=== PATIENT | female | born 1935 | race Caucasian/White ===

== ENCOUNTER 2024-12-08 20:12 | Inpatient (IN) | payer MEDICARE ==
[~2024-12-08] VITALS: Ht 170.2 cm; Wt 83.3 kg
--- NOTE | 2024-12-08 20:23 | NUR ---
PATIENT REMOVED C-COLLAR ON HER OWN, WITNESS BY EMS CREW THAT BROUGHT PATIENT IN.
--- NOTE | 2024-12-08 20:48 | ERN ---
ED Note History of Present Illness Stated Complaint: FALL FROM STANDING POSITION Chief Complaint: Mechanical Fall Time Seen by MD: 20:14 Dictation: This is an 89-year-old female who came via EMS for evaluation of a fall. Patient stated that she was carrying something from utility room and tripped on metal ledge fell forward on the face. She was unable to get up due to chronic disability and scooted 40-50 feet and had to roll back to help herself stand up near her garage to could call for help. Reports some dizziness No loss of consciousness , palpitations presyncope or syncope. No history of any blurred vision diplopia facial asymmetry motor weakness and seizure activity No fever chills or rigors no nausea vomitings diarrhea. She denied hitting her head. Patient is not on any blood thinners Temperature 98 pulse 107 respirations 16 blood pressure 111/67 with a pulse oximetry of 99% on room air Allergies: Coded Allergies: aspirin (Verified Allergy, Unknown, 03/29/19) butalbital (Verified Allergy, Unknown, 03/29/19) caffeine (Verified Allergy, Unknown, 03/29/19) codeine (Verified Allergy, Unknown, 03/29/19) meperidine (Verified Allergy, Unknown, 03/29/19) Past Medical History Past Medical History: Asthma, COPD, Unknown Additional Past Medical Hx: "YOU HAVE IT HERE" pulmonary nodule Surgical History: Unknown Family History: Negative Social History: Negative History: Not Applicable RN Note Reviewed/Agreed w/PFSH: Yes Review of System Dictation Constitutional: Negative for fever,chills, and weight loss positive for fall and and abrasions and injury Eyes: Negative for injury, pain,redness, and discharge ENT: Negative for injury,pain or swelling Cardiovascular: Negative for chest pain, palpitations, and edema Respiratory: Negative for shortness of breath, cough, and wheezing, Abdomen/GI: Negative for abdominal pain, nausea, vomiting, diarrhea, and constipation Back: Negative for injury and pain : Negative for injury, bleeding and discharge MS/Extremity: Negative for injury and deformity Skin: Negative for rash, and discoloration Neuro: Negative for headache, weakness, numbness, tingling, and seizure Psych: Negative for suicide ideation, homicidal ideation, and hallucinations Initial Vital Sign VS Vital Signs Date Time Temp Pulse Resp B/P (MAP) Pulse Ox O2 Delivery O2 Flow Rate FiO2 10/9/25 20:14 98.1 107 16 111/67 99 Room Air 0 12/08/24 20:59 21 Physical Exam Dictation General: awake, alert, NAD very pleasant elderly female Head/Face: Normocephalic, multiple abrasions and a cut in her oral cavity lower jaw due to injury from her dentures. Eyes: PERRL, EOMI, vision at baseline ENT: oral cavity clear, TMs clear, no signs of infection Neck: Trachea midline, supple, no nuchal rigidity Cardiovascular: RRR, normal S1/S2, No MRGs, no JVD Respiratory: CTAB, no respiratory distress, No rales or wheezes Abdomen: Soft, non-tender, non-distended, normal bowel sounds, no guarding or rebound. Skin: Warm, dry, normal turgor, no rash extensive ecchymosis and abrasions on right upper extremity MS/Extremity: Pulses equal, no cyanosis, neurovascular intact, FROM Neuro: COAx4, GCS 15, strength 5/5, CN 2-12 intact, normal cerebellar exam, normal gait, Psych: Normal behavior, mood, and affect normal Extremities-trace edema without any palpable cords, Homans sign is negative Results (Laboratory/Radiology) Laboratory/Radiology Laboratory Tests Test 12/08/24 20:52 12/08/24 23:30 White Blood Count 14.2 K/uL (4.8-10.8) H Red Blood Count 4.24 MIL/uL (4.00-5.50) Hemoglobin 12.2 g/dL (12.0-16.0) Hematocrit 37.0 % (36-48) Mean Corpuscular Volume 87.3 fL (79-99) Mean Corpuscular Hemoglobin 28.8 pg (27.0-33.0) Mean Corpuscular Hemoglobin Concent 33.0 g/dL (32.0-36.0) Red Cell Distribution Width 14.1 % (11.0-15.5) Platelet Count 219 K/uL (130-400) Mean Platelet Volume 10.1 fL (7.5-10.5) Immature Granulocyte % (Auto) 0.7 % (0-1) Neutrophils (%) (Auto) 88.4 % (40.0-77.0) H Lymphocytes (%) (Auto) 6.4 % (21.0-51.0) L Monocytes (%) (Auto) 3.6 % (3.0-13.0) Eosinophils (%) (Auto) 0.6 % (0.0-8.0) Basophils (%) (Auto) 0.3 % (0.0-5.0) Neutrophils # (Auto) 12.5 K/uL (1.8-7.7) H Lymphocytes # (Auto) 0.9 K/uL (1.0-4.8) L Monocytes # (Auto) 0.5 K/uL (0.1-1.0) Eosinophils # (Auto) 0.08 K/uL (0.00-0.70) Basophils # (Auto) 0.04 K/uL (0.00-0.20) Absolute Immature Granulocyte (auto 0.10 K/uL (0-1) Nucleated Red Blood Cells 0.0 % (0.0-0.19) White Cell Morphology Comment See comments Sodium Level 141 mmol/L (136-145) Potassium Level 3.6 mmol/L (3.5-5.1) Chloride Level 103 mmol/L (101-111) Carbon Dioxide Level 26 mmol/L (21-32) Blood Urea Nitrogen 19 mg/dL (7-18) H Creatinine 1.0 mg/dL (0.5-1.0) Glomerular Filtration Rate Calc 55 mL/min (>90) Random Glucose 158 mg/dL (70-105) H Total Calcium 8.8 mg/dL (8.5-10.1) Total Creatine Kinase 322 U/L (21-232) H 779 U/L (21-232) #*H Troponin I High Sensitivity 484.0 ng/L (4-50) *H 1917 ng/L (4-50) *H Labs Reviewed?: Yes EKG Comment: 12 lead EKG done on 12/08/2024 at 9:33 p.m. showed a heart rate of 83, [place] interval 172, QRS 104, QT/QTC 367/430 Impression normal sinus rhythm with nonspecific ST-T changes. EKG rhythm strip shows a normal sinus rhythm with nonspecific STT wave changes noted. Interpreted by ER MD Dr. Arias X-RAY Comment: REASON: fall ORDERING PHYSICIAN: MALA ARIAS MD PROCEDURE: CXR1VW - CHEST 1VW EXAM: CR Chest, 1 View. CLINICAL HISTORY: Fall. COMPARISON: None provided. FINDINGS: LUNGS: The lungs show no infiltrate or other acute finding. PLEURAL SPACES: No pleural effusion or pneumothorax. MEDIASTINUM: Cardiac size and mediastinal contours are within normal limits. BONES: No aggressive appearing osseous lesion. IMPRESSION: No acute cardiopulmonary pathology is evident. /[place] DICTATED BY: SHAHBAZ MUNIZ Jr., MD DATE: 12/08/242351 ELECTRONICALLY SIGNED BY: SHAHBAZ MUNIZ Jr., MD DATE: 12/08/242351 CT Scan Comment: REASON: fall on face and eccymoses and abrasions on lips face ORDERING PHYSICIAN: MALA ARIAS MD PROCEDURE: C SPIN WO - CT CERVICAL SPINE W/O CONTRAST EXAM: CT Cervical Spine Without IV contrast. CLINICAL HISTORY: Fell on the face and ecchymoses and abrasions on the lips and face. TECHNIQUE: Axial computed tomography images of the cervical spine without intravenous contrast. Sagittal and coronal reformatted images were generated. COMPARISON: None provided. FINDINGS: ALIGNMENT: Bony alignment is anatomic. Straightening of the cervical lordosis, which may represent paraspinal muscle spasm. DEGENERATIVE CHANGES: Multilevel moderate spondylosis as evident by marginal osteophytes, reduction in disc spaces, with associated mild endplate deformities and bilateral variable facet joint arthropathy. Moderate left lateral atlanto-axial joint osteoarthritis. Multilevel moderate diffuse disc bulges from C3-C4 through C6-C7 levels in the form of disc osteophyte complex and bilateral uncovertebral joints spurring, causing indentation on the anterior thecal sac, mild to moderate narrowing of the bilateral neural foramina, with possible impingement on the exiting nerve roots. SOFT TISSUES: The prevertebral soft tissues are within normal limits. Incidental bilateral thyroid nodules. BONES: No acute fracture or aggressively appearing osseous lesion. IMPRESSION: No acute cervical spine abnormality. Multilevel moderate spondylosis as evident by marginal osteophytes, reduction in disc spaces, with associated mild endplate deformities and bilateral variable facet joint arthropathy. Moderate left lateral atlanto-axial joint osteoarthritis. Straightening of the cervical lordosis, which may represent paraspinal muscle spasm. Incidental bilateral thyroid nodules. Recommended ultrasound correlation. Recommended MRI for further evaluation. /[place] DICTATED BY: SHAHBAZ MUNIZ Jr., MD DATE: 12/08/242355 ELECTRONICALLY SIGNED BY: SHAHBAZ MUNIZ Jr., MD DATE: 12/08/242355 REASON: fall on face and eccymoses and abrasions on lips face ORDERING PHYSICIAN: MALA ARIAS MD PROCEDURE: HEAD WO - CT HEAD/BRAIN W/O CONTRAST EXAM: CT Head Without IV contrast CLINICAL HISTORY: Patient presents with facial trauma following a fall, with ecchymosis and abrasions over the lips and face. TECHNIQUE: Axial computed tomography images of the head/brain without intravenous contrast. COMPARISON: 02/13/2013. FINDINGS: BRAIN: No acute intracranial hemorrhage, mass lesion, or territorial infarct. Diffuse age-related cerebral atrophy characterized by dilatation of the lateral ventricles, prominence of basal cisterns, cortical sulci, and bilateral Sylvian fissures. Interval new mild bilateral periventricular chronic small vessel ischemic changes. VENTRICLES: No hydrocephalus. ORBITS: Normal. SINUSES AND MASTOIDS: Paranasal sinuses and mastoid air cells are clear. BONES: No calvarial or facial bone fracture. SOFT TISSUES: Unremarkable. IMPRESSION: No acute intracranial abnormality. Diffuse age-related cerebral atrophy. Interval new mild bilateral periventricular white matter chronic small vessel ischemic changes. /[place] DICTATED BY: SHAHBAZ MUNIZ Jr., MD DATE: 12/09/242355 ELECTRONICALLY SIGNED BY: SHAHBAZ MUNIZ Jr., MD DATE: 12/09/242355 ED Course ED Course Orders Procedure Category Date Status Time Cardiac Panel LAB 12/08/24 Complete 20:41 Cbc With Differential LAB 12/08/24 Complete 20:41 Basic Metabolic Panel LAB 12/08/24 Complete 20:41 Urinalysis Profile LAB 12/08/24 Logged 20:41 12 Lead Ekg Tracing- EKG 12/08/24 Logged Technical 20:41 Chest 1vw RAD 12/08/24 Resulted 20:41 Ct Maxillofacial W/O CT 10/9/25 Resulted Contrast 20:59 Ct Head/Brain W/O CT 12/08/24 Resulted Contrast 20:59 Ct Cervical Spine W/O CT 12/08/24 Resulted Contrast 20:59 Hand 2+Vws Rt Limited RAD 12/08/24 Taken 20:59 12 Lead Ekg Tracing- EKG 12/08/24 Logged Technical 23:12 0.9%Nacl 1000ml (Ns PHA 12/08/24 Complete 1000ml) 23:30 Cardiac Panel LAB 12/08/24 Complete 23:12 Initiate Heparin VICTOR HUGO 12/09/24 In Process Treatment Pro 00:12 Cbc With Differential LAB 12/10/24 Verified 04:00 Cbc With Differential LAB 12/13/24 Verified 04:00 Cbc With Differential LAB 12/16/24 Verified 04:00 Partial LAB 12/09/24 In Process Thromboplastin Time 00:12 Heparin 5,000 Unit PHA 12/09/24 Logged Vial (Heparin 5,000 U 01:00 Heparin 25,000 PHA 12/09/24 Logged Units/250ml D5w 01:00 Heparin Protocol CPOE 12/09/24 Transmitted Monitoring 00:12 Current Medications Medications (Trade) Dose Ordered Sig/Migel Route PRN Reason Start Time Stop Time Status Last Admin Dose Admin Heparin Sodium (Porcine) (HEParin 5,000 UNIT VIAL) *calculation based on ACTUAL B... AD PRN IV HEPARIN PROTOCOL 12/09/24 01:00 01/08/25 00:59 UNV Heparin Sodium/ Dextrose 250 ml @ 0 mls/hr Q6H IV 12/09/24 01:00 01/08/25 00:59 UNV Sodium Chloride 1,000 ml @ 0 mls/hr ONCE ONCE IV 12/08/24 23:30 12/08/24 23:31 DC 12/08/24 23:31 Vital Signs Date Time Temp Pulse Resp B/P (MAP) Pulse Ox O2 Delivery O2 Flow Rate FiO2 12/08/24 22:18 98.8 82 14 141/65 99 Room Air* 0 21 12/08/24 20:59 98.8 89 14 140/50 95 Room Air* 0 21 12/08/24 20:14 98.1 107 16 111/67 99 Room Air 0 We will perform diagnostic labs, advanced imaging and administer medications according to the patient's complaint. Once the results are available, will review and personally interpreted the labs to rule out any acute life- threatening emergency the trach require immediate intervention and treatment. I will then re-evaluate the patient after treatment and diagnostic exams have return to determine whether the patient requires any further testing, can safely be discharged home or need further admission to hospital for additional treatment and evaluation. 12:30 a.m. patient accepted by Dr Jenkins covering for for admission for evaluation of NSTEMI and further cardiac workup. Medical Decision Making MDM Differential diagnosis: Fall with the dizziness-trauma intracranial hemorrhage skull fractures multi trauma, primary cardiac event, rhabdomyolysis This is an 89-year-old female who came via EMS for evaluation of a fall. No loss of consciousness no dizziness, palpitations presyncope or syncope. No history of any blurred vision diplopia facial asymmetry motor weakness and seizure activity No fever chills or rigors no nausea vomitings diarrhea. She denied hitting her head. Patient is not on any blood thinners Temperature 98 pulse 107 respirations 16 blood pressure 111/67 with a pulse oximetry of 99% on room air 9:37 p.m. labs reviewed CBC shows a white count of 14.2 hemoglobin 12.2 platelets 219. BNP 7 is with a normal limits. Total CK 322 and troponins are 484. 11:20 p.m. extensive imaging studies have been reviewed no obvious fractures noted no intracranial hemorrhage noted. 12:20 a.m. 2nd set of CK was 779 and troponin was 1917. Patient has already received aspirin. Heparin initiated. Patient will be admitted to the hospital and I updated her on all the lab results possibly a demand ischemia and need for further cardiac evaluation. Rationale: Tests considered and ordered secondary to shared decision making include: labs, ECG and radiology Previous outside records reviewed: Old ER visits. Risk of complication and/or morbidity or mortality of patient management: Risks benefits of heparin drip including bleeding discussed extensively Medications-Per medication reconciliation Need for hospitalization: Patient does meet criteria for hospitalization. Need for emergency major/minor surgery: No There are no social concerns with this patient. Prescription drug management Prescriptions will include symptomatic care Patient's prior external medical records from other ER visits were reviewed by me as indicated. Prior testing and results from previous visits were reviewed. Prior tests were taken into account with medical decision making and resource utilization, independent historian/historians were used to obtain complete medical history. I independently interpreted the test that were performed, results were reviewed by me and considered findings on radiology if ordered. Medical management and examination interpretation discussions were had by me with other qualified healthcare professionals as indicated for the patient's care. Problem List Problem List: (1) Fall from standing (2) Acute non-ST elevation myocardial infarction (NSTEMI) (3) History of COPD (4) Facial injury (5) Leukocytosis Critical Care Note Comment(s) Life-threatening illness; acute non-STEMI, fall with a multiple contusions Risk of morbidity mortality-high Complexity of medical decision making-high (X) high probability of sudden clinically significant deterioration in the patient's condition required the highest level of my preparedness to intervene urgently. I provided critical care services requiring my direct and personal management as noted below; (x) chart data review (x) reviewing nurse's notes and/charts (x) documentation time (x) consultation collaboration on findings and therapy options (x) medication orders and management (x) re-evaluations (x) care, transfer of care, and discharge plans (x) ordering and interpreting studies (x) ordering and reviewing labs (x) obtaining necessary history from family, EMS, assisted, private MD, surrogate decision makers because patient was unable to give history due to limitations in the mental status (x) aggregate critical care time was ( 40 ) minutes. This includes only time during which I was engaged in work directly related to the patient's care as described above whether at the bedside or elsewhere in the ER while the patient was critical. My time did not include minutes spent treating any other patients simultaneously or on activities that did not directly contribute to the patient's treatment. It did not include time spent performing other reported procedures or services of residents if any. Mala LEWISCP DX & DISP Disposition: Inpatient Decision to Admit Time: 23:17 Departure Impression: Primary Impression: Fall from standing Additional Impressions: Facial injury, Acute non-ST elevation myocardial infarction (NSTEMI), Leukocytosis, History of COPD, Contusion of multiple sites Condition: Stable Additional Instructions: Patient was informed of all the diagnostic labs and procedures conducted in the emergency room today and demonstrated understanding of the results. I personally reviewed and interpreted all the diagnostic exams performed in the ER today. The patient will be admitted to the hospital for further treatment and evaluation. Disposition-admit to facility Condition-stable/guarded Course-uncertain at this time Pain status-decreased Assessment-exam unchanged Admission Certification- I certify that the patients status is appropriate and is based on my best clinical judgment and the patient's condition as documented in the medical records Referrals: SELF,REFERRAL (PCP) MALA ARIAS MD Dec 08, 2024 20:47
[2024-12-08 20:59] LABS: IMMATURE GRANULOCYTE ABSOLUTE 0.10 K/uL (0-1); NUCLEATED RED BLOOD CELLS 0.0 % (0.0-0.19); PLATELET COUNT (AUTO) 219 K/uL (130-400); RED BLOOD CELL COUNT(AUTO) 4.24 MIL/uL (4.00-5.50); RED CELL DISTRIBUTION WIDTH 14.1 % (11.0-15.5); WHITE BLOOD COUNT (AUTO) 14.2 K/uL (4.8-10.8)
[2024-12-08 21:09] LABS: CREATININE 1.0 mg/dL (0.5-1.0); GLOMERULAR FILTR. RATE CALC 55.0 mL/min (>90); GLUCOSE,RANDOM 158.0 mg/dL (70-105); SODIUM SERUM 141.0 mmol/L (136-145); UREA NITROGEN, BLOOD 19.0 mg/dL (7-18)
[2024-12-08 21:17] LABS: CREATINE KINASE, TOTAL 322.0 U/L (21-232)
--- NOTE | 2024-12-08 21:56 | NUR ---
RETURNED FROM CT.
--- NOTE | 2024-12-08 22:53 | HMCIMG ---
EXAM: CR Chest, 1 View. CLINICAL HISTORY: Fall. COMPARISON: None provided. FINDINGS: LUNGS: The lungs show no infiltrate or other acute finding. PLEURAL SPACES: No pleural effusion or pneumothorax. MEDIASTINUM: Cardiac size and mediastinal contours are within normal limits. BONES: No aggressive appearing osseous lesion. IMPRESSION: No acute cardiopulmonary pathology is evident. /[place]
--- NOTE | 2024-12-08 22:57 | HMCIMG ---
EXAM: CT Cervical Spine Without IV contrast. CLINICAL HISTORY: Fell on the face and ecchymoses and abrasions on the lips and face. TECHNIQUE: Axial computed tomography images of the cervical spine without intravenous contrast. Sagittal and coronal reformatted images were generated. COMPARISON: None provided. FINDINGS: ALIGNMENT: Bony alignment is anatomic. Straightening of the cervical lordosis, which may represent paraspinal muscle spasm. DEGENERATIVE CHANGES: Multilevel moderate spondylosis as evident by marginal osteophytes, reduction in disc spaces, with associated mild endplate deformities and bilateral variable facet joint arthropathy. Moderate left lateral atlanto-axial joint osteoarthritis. Multilevel moderate diffuse disc bulges from C3-C4 through C6-C7 levels in the form of disc osteophyte complex and bilateral uncovertebral joints spurring, causing indentation on the anterior thecal sac, mild to moderate narrowing of the bilateral neural foramina, with possible impingement on the exiting nerve roots. SOFT TISSUES: The prevertebral soft tissues are within normal limits. Incidental bilateral thyroid nodules. BONES: No acute fracture or aggressively appearing osseous lesion. IMPRESSION: No acute cervical spine abnormality. Multilevel moderate spondylosis as evident by marginal osteophytes, reduction in disc spaces, with associated mild endplate deformities and bilateral variable facet joint arthropathy. Moderate left lateral atlanto-axial joint osteoarthritis. Straightening of the cervical lordosis, which may represent paraspinal muscle spasm. Incidental bilateral thyroid nodules. Recommended ultrasound correlation. Recommended MRI for further evaluation. /[place]
--- NOTE | 2024-12-08 23:02 | HMCIMG ---
EXAM: CT Head Without IV contrast CLINICAL HISTORY: Patient presents with facial trauma following a fall, with ecchymosis and abrasions over the lips and face. TECHNIQUE: Axial computed tomography images of the head/brain without intravenous contrast. COMPARISON: 02/13/2013. FINDINGS: BRAIN: No acute intracranial hemorrhage, mass lesion, or territorial infarct. Diffuse age-related cerebral atrophy characterized by dilatation of the lateral ventricles, prominence of basal cisterns, cortical sulci, and bilateral Sylvian fissures. Interval new mild bilateral periventricular chronic small vessel ischemic changes. VENTRICLES: No hydrocephalus. ORBITS: Normal. SINUSES AND MASTOIDS: Paranasal sinuses and mastoid air cells are clear. BONES: No calvarial or facial bone fracture. SOFT TISSUES: Unremarkable. IMPRESSION: No acute intracranial abnormality. Diffuse age-related cerebral atrophy. Interval new mild bilateral periventricular white matter chronic small vessel ischemic changes. /[place]
--- NOTE | 2024-12-08 23:09 | HMCIMG ---
EXAM: CT Maxillofacial Without IV contrast. CLINICAL HISTORY: Patient presents with facial trauma following a fall, with ecchymosis and abrasions over the lips and face. TECHNIQUE: Axial computed tomography images of the face without intravenous contrast. Sagittal and coronal reformatted images were generated. CONTRAST: None. COMPARISON: CT dated 11/10/2009. FINDINGS: FACIAL BONES / ORBITS: Suspicion of a mildly displaced fracture involving the base of the nasal septum with deviation of the nasal septum to the right. No additional facial bone fracture. The mandible is intact. The orbits are normal without retrobulbar hematoma or mass. The paranasal sinuses are clear. SOFT TISSUES: Midline perimandibular soft tissue contusion with minimal emphysematous changes in the region of the lower lip. No radiopaque foreign body or focal fluid collection. OTHER FINDINGS: Incidental bilateral thyroid nodules. IMPRESSION: Suspicion of a mildly displaced fracture involving the base of the nasal septum with deviation of the nasal septum to the right. Midline perimandibular soft tissue contusion with minimal subcutaneous emphysematous changes near the lower lip. Incidental bilateral thyroid nodules. Recommendation: MRI face and neck or a dedicated thyroid ultrasound, for further evaluation of the thyroid nodules. /[place]
[2024-12-08] MEDS: 0.9%NACL 1000ML 1,000 ML IV ONE (23:31)
[2024-12-09 00:05] LABS: CREATINE KINASE, TOTAL 779 U/L (21-232)
[2024-12-09 01:29] LABS: ADD UA MICROSCOPIC YES; APPEARANCE,URINE CLEAR (CLEAR); GLUCOSE, URINE (UA) NEGATIVE (NEGATIVE); LEUKOCYTE ESTERASE ,URINE 75 Leu/uL (NEGATIVE); NITRATE,URINE NEGATIVE (NEGATIVE); OCCULT BLOOD,URINE NEGATIVE (NEGATIVE)
[2024-12-09 01:32] LABS: SQUAMOUS EPITHELIAL CELL,UR MOD /HPF (0-2)
--- NOTE | 2024-12-09 02:46 | EKG ---
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
--- NOTE | 2024-12-09 02:46 | EKG ---
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
[2024-12-09] MEDS: OCTYL 2-CYANOACRYLATE 1 EACH TP ONE (04:34)
[2024-12-09 06:48] LABS: IMMATURE GRANULOCYTE ABSOLUTE 0.04 K/uL (0-1); NUCLEATED RED BLOOD CELLS 0.0 % (0.0-0.19); PLATELET COUNT (AUTO) 193 K/uL (130-400); RED BLOOD CELL COUNT(AUTO) 4.06 MIL/uL (4.00-5.50); RED CELL DISTRIBUTION WIDTH 14.1 % (11.0-15.5); WHITE BLOOD COUNT (AUTO) 11.2 K/uL (4.8-10.8)
[2024-12-09 07:01] LABS: INR 1.03 (0.85-1.15)
[2024-12-09 07:23] LABS: ASPARTATE AMINOTRANSFERASE 39.0 U/L (10-37); CREATININE 0.9 mg/dL (0.5-1.0); GLOMERULAR FILTR. RATE CALC 62.0 mL/min (>90); GLUCOSE,RANDOM 123.0 mg/dL (70-105); SODIUM SERUM 140.0 mmol/L (136-145); TOTAL PROTEIN, SERUM 6.9 g/dL (6.0-8.3); UREA NITROGEN, BLOOD 13.0 mg/dL (7-18)
--- NOTE | 2024-12-09 07:30 | NUR ---
CARDIOLOGY CONSULT WAS NOT DONE. WAS ORDERED AT 0035 12/09/24
--- NOTE | 2024-12-09 07:31 | NUR ---
HEPARIN ON HOLD FOR 60 MIN PER PROTOCOL.
--- NOTE | 2024-12-09 08:00 | NUR ---
DR STILL AT BEDSIDE
--- NOTE | 2024-12-09 08:00 | NUR ---
CALLED CARDIOLOGY CONSULT PENDING CALL BACK
--- NOTE | 2024-12-09 09:02 | NUR ---
DCP:HOME Pt currently lives alone in her home. Pt does not have any DME or home health services. Pt states that she has a private pay lens gauger that goes to her home as needed to assist with home management and errands. Pt states that she is able to complete ADLs independently. PCP is Dr. Avilez and uses [facility] for any RX needs. At [place] pt will want to go home and family can assist with transportation. Addendum: 12/09/24 at 0905 by DANIEL AMBROSE SS Amended: Links added.
--- NOTE | 2024-12-09 10:59 | HMCIMG ---
HAND 2+VWS RT LIMITED REASON: fall with right arm pain and ecchymoses TECHNIQUE: 3 views were obtained. FINDINGS: There is no evidence of fracture or dislocation. There is no joint effusion. The soft tissues appear unremarkable. There is no evidence of a radiopaque foreign body. There is severe osteopenia. IMPRESSION: No acute findings. Severe osteopenia
--- NOTE | 2024-12-09 11:45 | NUR ---
CARDIOLOGY CEDRIC HARVEY AT BEDSIDE FOR CONSULT
--- NOTE | 2024-12-09 12:37 | CONS ---
[facility] CARDIOLOGY CONSULTATION REPORT Cardiology consultation note dictated for Kirk Oquendo MD Date Patient Seen: Dec 09, 2024 Requesting Physician: Casandra Jenkins MD Reason for Consultation: Elevated Troponin History of Present Illness: This this is an 89-year-old female with a past medical history of asthma, COPD, normal Lexiscan stress test in 2018, self reported allergy to regadenoson, Allergy to Aspirin, dysphagia and thyroid nodules who presented to the ED status post mechanical fall. Cardiology has been consulted for elevated troponin. The patient states she was walking into her garage when she stubbed her toe and fell over and elevated door way ledge hitting her face. She crawled out due to the inability to stand and was on the floor for approximately one hour before being found. The patient denied any prodromal dizziness or lost of consciousness. CT of the head was neg ative for acute findings. Troponin on admission of 484, 1917, 2579 and 2473. CK of 322 and 779. BNP of 182. EKG on admission demonstrated normal sinus rhythm with a heart rate of 83 bpm, no acute ischemia noted. The patient denies chest pain, chest pressure, palpitations, dizziness, or shortness of breath and any cardiac history such as myocardial infarction, arrhythmia, murmur, or CAD. The patient is maintained on a heparin drip. Past Medical History: As per HPI and summarized below Past Surgical History: Tonsillectomy Appendectomy Ovarian cyst removal Hysterectomy Coccyx removal Family History: The patient states her mother had a CVA and breast cancer. The patient's father had a CVA. Social History: The patient lives alone. Habits: The patient denies alcohol, tobacco, or illicit drug use. Home Meds: Estradiol 1 mg daily Kenalog/Audrey qt 0.1% cream topical 2-4 times daily Hydrocortisone/Anusol 2.5% cream, topical TID Cyclosporine 0.05%, 1 drop to each eye b.i.d. Hydroxyzine 50 mg every 8 hours p.r.n. Current Meds: Medications Dose Ordered Sig/Migel Start Time Stop Time Status Last Admin Heparin Sodium (Porcine) *calculation based on ACTUAL B... AD PRN 12/09/24 01:00 01/08/25 00:59 12/09/24 00:35 Heparin Sodium/ Dextrose 250 ml @ 0 mls/hr Q6H 12/09/24 01:00 01/08/25 00:59 12/09/24 08:56 Acetaminophen 650 mg Q6H PRN 12/09/24 00:30 01/08/25 00:29 Review of Systems: CONST: No fever, fatigue, or weight changes. EYES: No recent vision problems. ENT: Admits to left lower lip swelling and discomfort. C/V: No chest pain, palpitations, or edema. RESP: No cough, congestion, wheezing or shortness of breath. GI: No abdominal pain, nausea, vomiting, constipation, or diarrhea. : No incontinence or dysuria. SKIN: Admits to right upper extremity skin tear NEURO: No headache, focal numbness or weakness, dizziness, or seizures. PSYCH: No depression or anxiety. HEME: No abnormal bruising or bleeding. LYMPH: No swollen glands. Physical Examination: GENERAL: No acute distress. HEAD: Normal with no signs of head trauma. EYES: Conjunctiva and sclera normal. ENT: Left lower lip with edema and ecchymosis noted. NECK: Supple without JVD. Normal carotid upstrokes without bruits. LUNGS: Clear breath sounds bilaterally. No wheezes, or rhonchi. HEART: Normal rate and rhythm. Normal S1 and S2 without murmurs, gallop or rub. VASC: Peripheral pulses +2 bilaterally. ABD: Bowel sounds normal, soft, nontender, no masses, no organomegaly. No audible bruits. : Not examined LYMPH: No lymphadenopathy noted. EXT: No clubbing, cyanosis or edema. SKIN: Right upper extremity with skin tear NEURO: Awake, alert, and oriented x3. No focal sensory or strength deficits noted. Vital Signs (last 8hr) Date Time Temp Pulse Resp B/P (MAP) Pulse Ox O2 Delivery O2 Flow Rate FiO2 12/09/24 09:05 97.9 95 14 145/69 99 Room Air* 0 21 12/09/24 05:14 97.9 76 14 143/65 95 Room Air* 0 21 Laboratory: Hematology Labs: Test 12/09/24 06:37 12/08/24 20:52 Range/Units White Blood Count 11.2 H 4.8-10.8 K/uL Red Blood Count 4.06 4.00-5.50 MIL/uL Hemoglobin 11.6 L 12.0-16.0 g/dL Hematocrit 35.9 L 36-48 % Mean Corpuscular Volume 88.4 79-99 fL Mean Corpuscular Hemoglobin 28.6 27.0-33.0 pg Mean Corpuscular Hemoglobin Concent 32.3 32.0-36.0 g/dL Red Cell Distribution Width 14.1 11.0-15.5 % Platelet Count 193 130-400 K/uL Mean Platelet Volume 9.9 7.5-10.5 fL Immature Granulocyte % (Auto) 0.4 0-1 % Neutrophils (%) (Auto) 82.8 H 40.0-77.0 % Lymphocytes (%) (Auto) 11.7 L 21.0-51.0 % Monocytes (%) (Auto) 4.3 3.0-13.0 % Eosinophils (%) (Auto) 0.4 0.0-8.0 % Basophils (%) (Auto) 0.4 0.0-5.0 % Neutrophils # (Auto) 9.2 H 1.8-7.7 K/uL Lymphocytes # (Auto) 1.3 1.0-4.8 K/uL Monocytes # (Auto) 0.5 0.1-1.0 K/uL Eosinophils # (Auto) 0.04 0.00-0.70 K/uL Basophils # (Auto) 0.04 0.00-0.20 K/uL Absolute Immature Granulocyte (auto 0.04 0-1 K/uL Nucleated Red Blood Cells 0.0 0.0-0.19 % White Cell Morphology Comment See comments Chemistry Labs: Test 12/09/24 10:43 12/09/24 06:37 12/08/24 23:30 Range/Units Troponin I High Sensitivity 2579 *H 4-50 ng/L B-Type Natriuretic Peptide 182 H 0-100 pg/mL Sodium Level 140 136-145 mmol/L Potassium Level 3.7 3.5-5.1 mmol/L Chloride Level 106 101-111 mmol/L Carbon Dioxide Level 26 21-32 mmol/L Blood Urea Nitrogen 13 7-18 mg/dL Creatinine 0.9 0.5-1.0 mg/dL Glomerular Filtration Rate Calc 62 >90 mL/min Random Glucose 123 H 70-105 mg/dL Total Calcium 8.8 8.5-10.1 mg/dL Total Bilirubin 0.6 0.2-1.0 mg/dL Aspartate Amino Transf (AST/SGOT) 39 H 10-37 U/L Alanine Aminotransferase (ALT/SGPT) 22 12-78 U/L Alkaline Phosphatase 98 50-136 U/L Total Protein 6.9 6.0-8.3 g/dL Albumin 2.9 L 3.5-5.0 g/dL Total Creatine Kinase 779 #*H 21-232 U/L Coagulation Labs: Test 12/09/24 06:37 Range/Units Prothrombin Time 10.9 9.6-11.6 SEC Prothromb Time International Ratio 1.03 0.85-1.15 Activated Partial Thromboplast Time 126.4 #*H 26.3-35.5 SEC Diagnostics / Radiology: Impression and Plan: Rhabdomyolysis NSTEMI, Type II UTI Leukocytosis Mechanical fall Facial trauma Asthma COPD Normal Lexiscan stress test in 2018 Self reported allergy to regadenoson, Dysphagia Thyroid nodules Allergy to Aspirin NSTEMI, Type II In the setting of trauma, UTI and Rhabdomyolysis Troponin of 484, 1917, 2579, and 2473 CK of 322 and 779, pending one more set BNP 182 EKG on admission demonstrated normal sinus rhythm with a heart rate of 83 bpm, no acute ischemia noted -Allergy to Aspirin -Discontinue Heparin drip. -Start Toprol 12.5mg daily and Plavix 75mg daily -Preliminary Echocardiogram demonstrated a left atrial mass -Plan for Coronary CTA on Thursday12/12/2024 CEDRIC HARVEY [facility] Dec 09, 2024 12:37
--- NOTE | 2024-12-09 17:27 | HMCSR ---
APPROVED REPORT EXAM: Two-dimensional and M-mode echocardiogram with Doppler and color Doppler. INDICATION ICD: Non ST-elevation MT I21.4 2D Dimensions RVDd4.6 cmLVEF(%)60.4 (>50%)LVED Vol(simp.)83.0 mL IVSd0.7 (0.7-1.1cm)FS(%)32 %LVES Vol(simp.)38.0 mL LVDd4.3 (3.8-5.6cm)LA (2D)2.9 (1.6-4.0cm)LVEF(%, simp.)54 % PWd0.6 (0.7-1.1cm)Ao Root(2D)3.2 (2.0-3.7cm)LA ESV INDEX (BP)24.27 mL/m2 IVSs0.7 cmLVOT diam2.3 (1.8-2.4cm) LVDs2.9 (2.5-4.0cm)IVC diam1.0 cm PWs1.2 cm Deformation Strain Apical 4-14.8 % Apical 2-17.2 % Apical 3-17.3 % Global Strain-16.4 % M-Mode Dimensions EPSS0.6 cm LA (MM)3.6 (1.6-4.0cm) Ao Root(MM)3.0 (2.0-3.7cm) Aortic Valve AoV Vmax1.2 m/Ambrose Peak GR5.4 mmHgLVOT Vmax1.0 m/s AoV VTI0.2 mAo Mean GR3.1 mmHgLVOT VTI0.18 m JEFERSON (VMAX)3.51 cm2Al P1/2T557 msAVA (VTI) 3.6 cm2 Mitral Valve MV E Vmax80.3 cm/sDECEL Lfke360 ms MV A Vmax96.7 cm/sP 1/2 T40 ms E/A ratio0.8MVA (PHT)5.6 cm2 TDI E/E' Xbwzti33.3E/E' Tvdykjq43.4 Medial E' Peak V6.04 cm/sLateral E' Peak V4.91 cm/s Tricuspid Valve TR Vmax2.5 m/sRAP (EST) 3 shZdHILY93.1 mmHg TR Peak GR27.1 mmHg Left Ventricle The left ventricle is normal size. Normal left ventricular systolic wall motion. Mild concentric left ventricular hypertrophy. Left ventricle systolic function is low-normal, estimated LVEF is 50-55%. I ndeterminate diastolic dysfunction. Right Ventricle The right ventricle is dilated. The right ventricular systolic function is normal. Atria The left atrium size is normal. The right atrium size is normal. There is a large size, 2.0 x 1.0cm e chodense mass, seen in the right atrium. The mass appears to be attached to the tricuspid valve or th e lateral right atrial wall. Aortic Valve Aortic valve is trileaflet. The leaflets are mildly thickened and calcified. Mild aortic regurgitatio n There is no aortic valvular stenosis. Mitral Valve The mitral valve is normal in structure. The leaflets are mildly thickened and calcified. Mitral regu rgitation. There is no mitral valve stenosis. Tricuspid Valve The tricuspid valve is normal in structure. Mild tricuspid regurgitation. RVSP is 27 mmHg. Pulmonic Valve Pulmonic valve is not well visualized. Great Vessels The aortic root is normal in size. The IVC is normal in size and collapses >50% with inspiration. Pericardium There is no pericardial effusion. Other Information Quality : Adequate Conclusion The right ventricle is dilated. Mild concentric left ventricular hypertrophy. Normal left ventricular systolic wall motion. Left ventricle systolic function is low-normal, estimated LVEF is 50-55%. Indeterminate diastolic dysfunction. The right atrium size is normal. There is a large size, 2.0 x 1.0cm echodense mass, seen in the righ t atrium. The mass appears to be attached to the tricuspid valve or the lateral right atrial wall. Mild aortic regurgitation Mitral regurgitation. Mild tricuspid regurgitation. PASP is 30 mmHg. There is no pericardial effusion. The above-mentioned mass in the right atrium is concerning and warrants further evaluation. We recom mend a coronary CTA to evaluate the cardiac chambers or a MALLY.
--- NOTE | 2024-12-09 17:43 | HP ---
HISTORY OF PRESENT ILLNESS: The patient of Dr. Avilez was brought to the Emergency Room after sustaining a fall from ground level. Apparently she tripped and landed on her face with trauma of her lips. No loss of consciousness. The patient was brought to the Emergency Room for evaluation and was found to have elevated troponin that continued to increase and was called to assume care. The patient was started on heparin drip by the ER physician. ALLERGIES: THE PATIENT IS ALLERGIC TO ASPIRIN, BUTALBITAL, CAFFEINE, CODEINE, AND MEPERIDINE. PAST MEDICAL HISTORY: COPD, bilateral lower extremity paraplegia. REVIEW OF SYSTEMS: Having no fever, chills, seizures, apparently loss of consciousness after recent fall. No cough, wheezes or rhonchi. No chest pain, palpitations, no nausea, vomiting, diarrhea, no dysuria, urgency, or frequency. No rashes, petechiae, or ecchymosis. No hallucinations or delusions. No suicidal ideation. PHYSICAL EXAMINATION: GENERAL: She is currently awake, alert, oriented in person, time and place, not in distress. VITAL SIGNS: In the chart. HEENT: She is normocephalic with multiple abrasions and cuts on her lower lips and face. Pupils are equally round and reactive to light and accommodation. Neck is supple. No jugular venous dilation. No carotid bruit or goiter. HEART: S1, S2 is clear. No S3, S4. No friction rubs or murmurs. LUNGS: Clear to auscultation bilaterally. No wheezes, rhonchi, no rales ABDOMEN: Soft, nontender. No masses. Bowel sounds are present. EXTREMITIES: No clubbing, cyanosis or edema. NEUROLOGIC: Cranial nerves are grossly preserved. No gross motor or sensory defect except for paresis of lower extremities. LABORATORY DATA: WBC count 14.2, hemoglobin 12.2, platelets 219. Sodium 141, potassium 3.6, BUN 19, creatinine 1. Initial troponin was 484. Repeated troponin was 1900. Total creatine kinase 322, repeated 729. EKG was reported normal sinus rhythm with nonspecific ST-T wave changes. ASSESSMENT AND PLAN: * Non ST elevation myocardial infarction. The patient will continue with heparin drip and consultation with Cardiology will be made. * Status post fall, no significant complications. X-rays were reported as without any fractures. * Continue with pain treatment, supportive care. * The patient will be admitted. As per ER physician, the patient is of Dr. Avilez and will be transferred to his care. TID: [id number] RECEIPT: [id number]
--- NOTE | 2024-12-09 18:00 | NUR ---
DR DORADO CARDIOLOGY AT BEDSIDE
[2024-12-09 18:14] LABS: INR 1.06 (0.85-1.15)
--- NOTE | 2024-12-09 18:33 | NUR ---
PATIENT STATES IS ALLERGIC TO IODINE CONTRAST FOR CT EXAM.
--- NOTE | 2024-12-09 18:36 | NUR ---
PT STATES SHE IS ALLERGIC TO IODINE
--- NOTE | 2024-12-09 18:50 | NUR ---
DR DORADO AWARE OF ALLERGY TO IODINE
[2024-12-09 19:19] VITALS: BP 87/60; PULSE 81; RESP 18; TEMP 98.1
[2024-12-09 20:00] VITALS: O2SAT 95
[2024-12-10] VITALS (8 sets, daily range): BP systolic 122–155; BP diastolic 53–82; PULSE 66–80; RESP 16–18; TEMP 98–98.6; O2SAT 95–96
[2024-12-10] MEDS ORDERED: HYDR28OI10 TP (00:08)
[2024-12-10] MEDS ORDERED: PROM25SU10 RC (00:08)
[2024-12-10] MEDS ORDERED: HYDR-3421 PO (00:08)
[2024-12-10] MEDS ORDERED: DESO15CR30 TP (00:08)
[2024-12-10] MEDS ORDERED: TRIAM15CRM TP (00:08)
[2024-12-10] MEDS ORDERED: PANT40TA54 PO (00:08)
[2024-12-10] MEDS ORDERED: ESTR0.5T2 PO (00:08)
--- NOTE | 2024-12-10 07:52 | NUR ---
DR. HALL NOTIFIED THAT THERE IS NO ENT OR MAXILLOFACIAL SURGEON AT [facility] [place]. STATED THAT PT WILL FOLLOW UP POST DC FROM THE HOSPITAL.
--- NOTE | 2024-12-10 17:00 | NUR ---
PATIENT AMBULATED IN THE HALLWAY ABOUT 150FEET WITH RN ASSISTANCE. PATIENT TOLERATED WELL.
--- NOTE | 2024-12-10 17:56 | PN ---
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 She was admitted 12/09/2024 secondary to a mechanical fall. She was found to have elevated CK consistent with rhabdomyolysis. She was also found to have elevated troponin felt to be type 2 myocardial infarction with a trend as follows: 484, 1917, 2579, 2472. She is placed on IV heparin which has been discontinued and transitioned to clopidogrel 75 mg once daily. She underwent echocardiogram 12/09/2024 which showed an ejection fraction of 50- 55% with mild LVH, normal-sized left atrium , large size, 2 x 1 cm echodense mass seen in the right atrium that appears to be attached to the tricuspid valve or lateral right atrial wall with otherwise normal-sized right atrium, mild aortic valve regurgitation and mildly thickened and calcified mitral valve with mitral valve regurgitation and mild tricuspid valve regurgitation. She is currently in sinus rhythm with heart rates in the 70s. Her most recent blood pressure is 127/75. Maxillofacial CT is suspicious for mildly displaced fracture involving the base of the nasal septum with deviation of the nasal septum to the right and midline perimandibular soft tissue contusion with minimal emphysematous changes in the region of the lower lip. CT of the head showed new mild bilateral periventricular white matter chronic small-vessel ischemic changes, age-related cerebral atrophy without acute findings. White blood count 11.2 down from 14.2, hemoglobin 11.6, hematocrit 35.9, platelets 193, creatinine 0.9, potassium 3.7, BNP 182. She reports diffuse discomfort to her joints and muscles due to being sedentary while here in the hospital. She is very anxious to ambulate and is awaiting physical therapy evaluation. On exam, she is in no acute distress, she has significant ecchymosis and edema to the lower lip, regular rate and rhythm, lungs are clear to auscultation bilaterally, ecchymosis and abrasions noted to the right forearm. Assessment: 1. Mechanical fall. 2. Rhabdomyolysis. 3. Elevated troponin felt to be type 2 DC. 4. 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 5. Asthma. 6. chronic obstructive pulmonary disease. 7. History of spinal cord injury secondary to chiropractic treatment. Plan: 1. She sustained a mechanical fall at home resulting in rhabdomyolysis. She also had elevated troponin felt to be type [address] angiography was recommended to assess both her coronary arteries and the right atrial mass. She states that she is allergic to iodine and declines having CT angiography. 2. We also discussed transesophageal echocardiogram for evaluation of the right atrial mass. She declines to have MALLY during this admission or any additional cardiac workup. In fact she stated that even if the right atrial mass was determined to be malignancy, she would not want any further treatment. 3. Continue metoprolol succinate 12.5 mg once daily and clopidogrel 75 mg once daily. 4. She wishes to ambulate with physical therapy and be discharged home. Unfortunately physical therapy was not able to evaluate her today. We will ensure that she is seen by physical therapy tomorrow. Vitals/Labs Vital Signs Date Time Temp Pulse Resp B/P (MAP) Pulse Ox O2 Delivery O2 Flow Rate FiO2 12/10/24 15:53 98.1 73 16 130/53 99 Room Air 12/10/24 08:00 0 21 RACHEL KOHLI PAC Dec 10, 2024 17:56
--- NOTE | 2024-12-10 23:45 | PN ---
SUBJECTIVE: The patient has facial pain and swelling. The patient has a history of a fall with trauma and the patient has rhabdomyolysis, which appears to be stabilized at this time. OBJECTIVE: VITAL SIGNS: Blood pressure is 130/60, pulse 60, respirations 16. LUNGS: Mostly decreased breath sounds. No wheezing or rhonchi. HEART: Regular rate and rhythm. ABDOMEN: Soft and nontender. HEENT: The patient has a significant facial bruise and right maxillary bruise and nasal contusion. NEUROLOGIC: No neurological focal deficits. ASSESSMENT: * Rhabdomyolysis. * [id number] myocardial infarction. * Urinary tract infection. The patient on antibiotics. * The patient has a history of mechanical falls. * Chronic obstructive pulmonary disease is stable. PLAN: The patient needs an Ear, Nose, and Throat consultation for a history of nasal septal injury. The patient states she had an old nasal septal fracture, but the patient also has a significant right maxillary tenderness and the patient needs to see an oral surgeon, which is not available at this time, so the patient needs to follow up with the oral surgeon as an outpatient. TID: [id number] RECEIPT: [id number]
[2024-12-11] VITALS (8 sets, daily range): BP systolic 130–151; BP diastolic 60–71; PULSE 69–83; RESP 16–18; TEMP 97.9–98.5; O2SAT 96–98
--- NOTE | 2024-12-11 13:46 | PN ---
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 She was admitted 12/09/2024 secondary to a mechanical fall. She was found to have elevated CK consistent with rhabdomyolysis. She was also found to have elevated troponin felt to be type 2 myocardial infarction with a trend as follows: 484, 1917, 2579, 2472. She is placed on IV heparin which has been discontinued and transitioned to clopidogrel 75 mg once daily. She underwent echocardiogram 12/09/2024 which showed an ejection fraction of 50- 55% with mild LVH, normal-sized left atrium , large size, 2 x 1 cm echodense mass seen in the right atrium that appears to be attached to the tricuspid valve or lateral right atrial wall with otherwise normal-sized right atrium, mild aortic valve regurgitation and mildly thickened and calcified mitral valve with mitral valve regurgitation and mild tricuspid valve regurgitation. She is currently in sinus rhythm with heart rates in the 70s. Her most recent blood pressure is 139/62. Maxillofacial CT is suspicious for mildly displaced fracture involving the base of the nasal septum with deviation of the nasal septum to the right and midline perimandibular soft tissue contusion with minimal emphysematous changes in the region of the lower lip. CT of the head showed new mild bilateral periventricular white matter chronic small-vessel ischemic changes, age-related cerebral atrophy without acute findings. CK total 323, down from 882. High sensitivity troponin 331, down from 2472. She reports diffuse musculoskeletal discomfort but states that she feels better today compared to yesterday. She attributes this to ambulating. She denies chest pain or shortness or breath. She is in good spirits and is anxious to return home. On exam, she is in no acute distress, she has ecchymosis and edema to the lower lip which is improving, regular rate and rhythm, lungs are clear to auscultation bilaterally, ecchymosis and abrasions noted to the right forearm. Assessment: 1. Mechanical fall with facial injury. 2. Rhabdomyolysis. 3. Elevated troponin felt to be type 2 VA. 4. 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 5. Asthma. 6. Chronic obstructive pulmonary disease. 7. History of spinal cord injury secondary to chiropractic treatment. Plan: 1. She sustained a mechanical fall at home resulting in rhabdomyolysis. She also had elevated troponin felt to be type [address] angiography was recommended to assess both her coronary arteries and the right atrial mass. She states that she is allergic to iodine and declines having CT angiography. 2. Yesterday we discussed transesophageal echocardiogram for evaluation of the right atrial mass. She declines to have MALLY during this admission or any additional cardiac workup. In fact she stated that even if the right atrial mass was determined to be malignancy, she would not want any further treatment. 3. Continue metoprolol succinate 12.5 mg once daily and clopidogrel 75 mg once daily. 4. Thankfully CK total and troponin are both downtrending. 5. She is cleared to be discharged from a cardiology standpoint with cardiology follow-up as an outpatient. Vitals/Labs Vital Signs Date Time Temp Pulse Resp B/P (MAP) Pulse Ox O2 Delivery O2 Flow Rate FiO2 12/11/24 12:20 98.4 73 16 139/62 98 Room Air 12/11/24 08:00 0 21 RACHEL KOHLI PAC Dec 11, 2024 13:46
[2024-12-12 00:38] VITALS: BP 145/72; PULSE 81; RESP 18; TEMP 98.5
[2024-12-12 00:43] VITALS: BP 119/70; PULSE 80; RESP 19; TEMP 97.9
--- NOTE | 2024-12-12 02:47 | PN ---
SUBJECTIVE: The patient denies any chest pain or shortness of breath. The patient defers MALLY at this time and the patient is getting treated for rhabdomyolysis secondary to the mechanical fall at this time. The patient wants to try the physical therapy and the patient wants to be discharged in the next 24 hours. OBJECTIVE: VITAL SIGNS: Blood pressure is 130/60, pulse 60, and respirations 14. LUNGS: Mostly decreased breath sounds. No wheezing or rhonchi. HEART: Regular rate and rhythm. ABDOMEN: Soft and nontender. NEUROLOGIC: No neurological focal deficits. ASSESSMENT AND PLAN: * Rhabdomyolysis and mechanical fall. The CPKs are trending downwards. * Right atrial mass. The patient defers any further workup or treatment. * Chronic obstructive pulmonary disease, stable. * Fall with facial contusion, multiple contusions including nasal injury and right maxillary injury. The patient needs an ear, nose, and throat or oral surgeon as an outpatient. TID: [id number] RECEIPT: [id number]
[2024-12-12 03:15] VITALS: BP 166/81; PULSE 82; RESP 18; TEMP 98.5
[2024-12-12 07:00] VITALS: O2SAT 96
[2024-12-12 07:49] VITALS: BP 136/72; PULSE 81; RESP 18; TEMP 98
[2024-12-12] MEDS ORDERED: HYDR-3421 PO (09:04)
[2024-12-12 11:56] VITALS: BP 138/61; PULSE 73; RESP 18; TEMP 97.8
--- NOTE | 2024-12-12 15:19 | NUR ---
SPOKE WITH JAKE YOUNGBLOOD. PT REFUSING CCTA.
--- NOTE | 2024-12-13 21:22 | DS ---
Discharge Summary DIAGNOSE(S): [Rhabdomyolysis NSTEMI, Type II UTI Leukocytosis Mechanical fall Facial trauma Asthma COPD Normal Lexiscan stress test in 2018 Self reported allergy to regadenoson, Dysphagia Thyroid nodules Allergy to Aspirin HOSPITAL COURSE SUMMARY: [ NSTEMI, Type II In the setting of trauma, UTI and Rhabdomyolysis Troponin of 484, 1917, 2579, and 2473 CK of 322 and 779, pending one more set BNP 182 EKG on admission demonstrated normal sinus rhythm with a heart rate of 83 bpm, no acute ischemia noted -Allergy to Aspirin -Discontinue Heparin drip. -Start Toprol 12.5mg daily and Plavix 75mg daily -Preliminary Echocardiogram demonstrated a left atrial mass]] POULTRY VACCINATOR(S): [Cardiology] PROCEDURE(S)/TREATMENT(S): [] PROBLEM(S): [] FOLLOW-UP TEST(S): [] DISCHARGE INSTRUCTIONS: [Patient was discharged home to followed as an outpatient with physical therapy with home health] Home Meds Reported Medications Hydroxyzine HCl (Hydroxyzine HCl) 25 Mg Tablet, 25 MG PO HS, TAB 12/12/24 Promethazine HCl (Promethegan) 25 Mg Supp.rect, 25 MG RC Q6HPRN PRN for OTHER [SEE ORDER COMMENTS], EA NAUSEA & VOMITING 12/10/24 Hydroxyzine HCl (Hydroxyzine HCl) 25 Mg Tablet, 50 MG PO Q6HPRN PRN for PAIN, TAB ALSO CAN TAKE FOR ANAPHYLAXIS 12/10/24 Pantoprazole Sodium (Pantoprazole Sodium) 40 Mg Tablet.dr, 40 MG PO AD, TAB PRN 12/10/24 Desonide (Desonide) 0.05 % Cream..g., 1 APPL TP HS, #60 GM 0 Refills apply to affected area(s) 12/10/24 Triamcinolone Acetonide (Triamcinolone Acetonide) 0.1 % Cream.gm., 1 APPL TP BID PRN for OTHER [SEE ORDER COMMENTS] for 10 Days, #80 GM 0 Refills 12/10/24 Hydrocortisone Acetate (Hydrocortisone) 1 % Oint...g., 1 APPL TP HS for 7 Days, #28 GM 0 Refills 12/10/24 Estradiol (Estradiol) 0.5 Mg Tablet, 1 TAB PO DAILY for 30 Days, #30 TAB 0 Refills 12/10/24 JERROD KU MD Dec 13, 2024 21:22
== END 2024-12-12 15:15 | disposition home or self-care (01) | DRG 557 ==
LOC: EDH 20:12 → EDHIP 12-09 00:28 → 2AH 12-09 18:55
PROVIDERS: ADMIT Internal Medicine; ATTEND Internal Medicine
DX: M62.82 Rhabdomyolysis (principal); I21.A1 Myocardial infarction type 2; N39.0 Urinary tract infection, site not specified; G82.20 Paraplegia, unspecified; S00.83XA Contusion of other part of head, initial encounter; J44.89 Other specified chronic obstructive pulmonary disease; R13.10 Dysphagia, unspecified; E04.2 Nontoxic multinodular goiter; M47.819 Spondylosis without myelopathy or radiculopathy, site unspecified; Y93.01 Activity, walking, marching and hiking; W18.00XA Striking against unspecified object with subsequent fall, initial encounter; Z79.02 Long term (current) use of antithrombotics/antiplatelets; Z82.3 Family history of stroke; Z88.6 Allergy status to analgesic agent; Z90.710 Acquired absence of both cervix and uterus
CPT/HCPCS: 36415; 70450; 70486; 71045; 72125; 73120; 76376; 80048; 80053; 81001; 82550; 83880; 84484; 85025; 85610; 85730; 87086; 93005; 93306; 93356; 99285; G0378; J1644